=== PATIENT | male | born 1940 | race Caucasian/White ===

== ENCOUNTER 2017-11-23 07:16 | Inpatient (IN) | payer MEDICARE, OTHER ==
[2017-11-11 09:18] LABS: HEMATOCRIT 45.7 % (42.0-52.0); HEMOGLOBIN 15.3 gm/dL (14.0-18.0); MCH 32.7 pg (26.0-34.0); MCHC 33.6 g/dL (28.0-37.0); MCV 97.6 fL (80.0-100.0); MPV 8.4 fl. (7.2-11.1); RBC 4.69 mil/uL (4.50-6.00); RDW-CV 12.4 % (10.5-14.5); WBC 5.2 thou/uL (4.0-11.0)
[2017-11-11 09:19] LABS: URINE BILIRUBIN NEGATIVE (Negative); URINE BLOOD NEGATIVE (Negative); URINE CLARITY CLEAR; URINE COLOR YELLOW; URINE GLUCOSE-RANDOM NEGATIVE (Negative); URINE KETONES NEGATIVE (Negative); URINE LEUKOCYTES-REFLEX NEGATIVE (Negative); URINE NITRITE-REFLEX NEGATIVE (Negative); URINE PROTEIN NEGATIVE (Negative); URINE SPECIFIC GRAVITY 1.025 (1.005-1.030); URINE UROBILINOGEN 0.2 E.U./dl (0.2-1.0)
[2017-11-11 09:39] LABS: ALBUMIN 3.9 g/dL (3.4-5.0); CALCIUM 8.4 mg/dL (8.5-10.1); INR 1.1; POTASSIUM 3.8 mmol/L (3.5-5.1); PROTIME 10.4 Seconds (9.20-11.50); TOTAL BILIRUBIN 0.7 mg/dL (<0.1-1.0); TOTAL PROTEIN 7.3 g/dL (6.4-8.2)
[~2017-11-23] VITALS: Ht 167.6 cm; Wt 64.0 kg
[~2017-11-23 07:16] MED LIST: ADULT ASPIRIN R81 MG PO; ALLEGRA ALLERG180 MG PO; ATORVASTATIN CA40 MG PO; CO Q-10100 MG PO; COLACE CLEAR50 MG PO; COMBIGAN EYE DR10 ML TOP; FELODIPINE ER10 MG PO; GLUCOSAMINE HC500 MG PO; METAMUCIL1 EAC1 PO; MINERAL OIL HEAV1 ML NASAL; NEILMED SINUS1 EAC4 NASAL; NITROGLYCERIN0.3 M1 SUBLING; OMEGA-31000 M1 PO; PROBIOTIC1 EAC1 PO; TRAVATAN Z2.5 ML OPHTHALMIC; VITAMIN D3400 UNIT PO; XANAX 0.25 MG0.25 MG PO
[2017-11-23 08:00] VITALS: BP 149/79
[2017-11-23 12:06] VITALS: BP 127/62
[2017-11-23 15:52] VITALS: BP 140/74
[2017-11-23 20:00] VITALS: BP 159/73
[2017-11-23 23:53] VITALS: BP 135/67
[2017-11-24] VITALS (8 sets, daily range): BP systolic 119–127; BP diastolic 63–65
[2017-11-24 04:30] LABS: HEMATOCRIT 38.3 % (42.0-52.0); HEMOGLOBIN 13.1 gm/dL (14.0-18.0)
[2017-11-24] MEDS ORDERED: PERCOCET PO (14:35)
[2017-11-24] MEDS ORDERED: XARELTO10 MG PO (14:52)
--- NOTE | 2017-11-25 14:02 | OP ---
[facility] [address] [place] [address] OPERATIVE REPORT Name: MEMO EMANUEL Room: [address] [place] .R.#: [id number] Admission: 11/23/17 Attend Phys: Wolfgang Gillette Discharge: 11/24/17 Date of : 42 Report #: [id number] THIS REPORT FOR: //name// CC: Kvng Seth DATE OF SERVICE: 11/23/2017 PREOPERATIVE DIAGNOSIS: Right knee osteoarthritis. POSTOPERATIVE DIAGNOSIS: Right knee osteoarthritis. PROCEDURE: Right total knee arthroplasty. SURGEON: Kvng Oviedo II, DO. TRACTOR MECHANIC APPRENTICE: PAUL Delacruz. ANESTHESIA: General endotracheal. ESTIMATED BLOOD LOSS: 50 mL. ANTIBIOTICS: Ancef preoperatively. DRAINS: Medium Hemovac. COMPLICATIONS: None. CONDITION OF PATIENT: Stable to recovery room. IMPLANTS: Listed in the operative record and progress note. BRIEF HISTORY: The patient was seen in the preoperative area. Preoperative H and P was performed. Site was marked, questions were answered. Risks and benefits were discussed with the patient in detail about surgery. The patient wished to proceed and assumed all risks. DESCRIPTION OF PROCEDURE: The patient was taken to the operative suite and placed supine on the OR table and given appropriate anesthesia. A well-padded tourniquet applied to upper thigh, inflated to 300 mmHg after gravity exsanguination. The operative knee was sterilely prepped and draped. Surgery began by midline incision. This was carried down to subcutaneous tissues. A medial parapatellar arthrotomy was performed and carried down to bone. The patella was then everted and excess soft tissue removed around the femur. Excess spurs and osteophytes were also removed. At this time, [place] [address] OPERATIVE REPORT Name: MEMO EMANUEL Room: [address]#: [id number] Admission: 11/23/17 Attend Phys: Wolfgang Gillette Discharge: 11/24/17 Date of : 42 Report #: [id number] alignment guides were then placed on the femur and tibia and the knee was registered throughout its range of motion as well as the bone ends were registered in the [employer] software. The appropriate size implant was selected utilizing [employer] software. The [employer] robotic assistance was then activated and appropriate guidepin was placed through appropriate cuts in both the femur and tibia. The femoral block was then applied, checked with a drop leona rotation alignment and the Navio for rotational alignment, pinned in appropriate position and appropriate cuts were made. The 4-in-1 cutting block was then applied, checked for rotational alignment, pinned in appropriate position and appropriate cuts were made. The tibia was then exposed, excess meniscus removed. Collateral ligaments were protected utilizing retractors. The tibial cutting block was then applied, pinned into appropriate position, checked with the drop leona and Navio assistance for rotation and slope and appropriate cuts were made. Tibia bone was removed. The tibial baseplate was then applied, checked for rotation alignment with the drop leona in neutral position. The femur was then applied. The box cut was reamed. This was then trialed with appropriate spacer, which showed excellent fit and fill and excellent stability of the knee through all range of motion. Patella was then reamed in appropriate fashion and sized to appropriate size. Three peg holes were drilled. Knee was then trialed and shown to have excellent flexion, extension and excellent tracking of patella in the groove. These trials were then removed. The tibia was punched in appropriate fashion. Bone ends were cleansed with Pulsavac irrigation and cement was mixed and applied to the final implants. These were malleted in position and held with the knee in extension and compressed while cement cured. After it cured, excess was removed using a [place] and osteotome. The wound was then copiously irrigated and the final spacer was then malleted in position. Tourniquet was deflated and hemostasis was obtained with electrocautery. Pain cocktail was injected. PRP gel was sprayed through the internal aspects of the knee. Medium Hemovac drain was applied. The capsule was closed with #2 FiberWire and #1 Vicryl in [id number] fashion. Skin was closed with 2-0 Vicryl and running 3-0 Monocryl. Dermabond and sterile dressing was applied. Ramos wrap and PolarCare applied. The patient transported to the recovery room in stable condition. Counts were correct throughout the procedure. <ELECTRONICALLY SIGNED> By: Kvng Oviedo II, DO 11/25/17 1402 1103 [id number] Oviedo II, DO /nt
== END 2017-11-24 16:10 | disposition home health service (06) | DRG 470 ==
LOC: M.TBA 07:16 → M.ORTHSURG 07:16 → M.PRE 07:41 → M.ORTHSURG 11:46 → M.PRE 11:58 → M.ORTHSURG 11-24 16:10
PROVIDERS: Orthopaedic Surgery; ADMIT Internal Medicine
PROC: 0SRC0J9 Replacement of Right Knee Joint with Synthetic Substitute, Cemented, Open Approach (ICD-10-PCS; principal; 2017-11-23)
DX: M17.11 Unilateral primary osteoarthritis, right knee (principal); E78.5 Hyperlipidemia, unspecified; H40.9 Unspecified glaucoma; Z95.1 Presence of aortocoronary bypass graft; Z79.82 Long term (current) use of aspirin; Z79.899 Other long term (current) drug therapy